=== PATIENT | female | born 1960 | race African-American/Black ===

== ENCOUNTER 2020-08-07 10:30 | Inpatient (IN) | payer MEDICARE ==
[~2020-08-07] VITALS: Ht 170.2 cm; Wt 169.0 kg
[2020-08-07] VITALS (7 sets, daily range): BP systolic 136–158; BP diastolic 59–91
[2020-08-07] MEDS ORDERED: MAGNESIUM/ALUMINUM HYDROXIDE/SIMETHICONE 30ML UDC PO STA (11:17)
[2020-08-07] MEDS ORDERED: KETOROLAC 30MG/ML VIAL IV STA (11:17)
[2020-08-07] MEDS ORDERED: ONDANSETRON HCL 4MG/2ML INJ IV STA (11:17)
[2020-08-07] MEDS ORDERED: SODIUM CHLORIDE 0.9% 1,000 ML IV ONE (11:30)
[2020-08-07 12:25] LABS: BASOPHILS % 0.6 % (0.0-2.0); EOSINOPHILS % 0.2 % (0.0-5.0); HEMATOCRIT. 44.7 % (36.0-48.0); HEMOGLOBIN. 14.7 g/dL (12.0-16.0); LYMPHOCYTES % 11.5 % (20.0-50.0); MEAN CORPUSCULAR HEMOGLOBIN 31.8 pg (28.0-32.0); MEAN CORPUSCULAR VOLUME 96.9 fL (81.0-99.0); MEAN PLATELET VOLUME 10.3 fl (7.4-10.4); MONOCYTES % 5.3 % (2.0-8.0); NEUTROPHILS % 82.4 % (40.0-76.0); PLATELET 120 x1000/uL (130-400); RED BLOOD CELL COUNT 4.62 mill/uL (4.2-5.4); RED CELL DISTRIBUTION WIDTH 13.9 % (11.6-14.6)
[2020-08-07 12:32] LABS: CHLORIDE 105 mEq/L (98-107)
[2020-08-07] MEDS ORDERED: ONDANSETRON HCL 4MG/2ML INJ IV ONE (13:45)
[2020-08-07] MEDS ORDERED: ENOXAPARIN 150MG/ML SYR SUBCUT ONE (13:45)
[2020-08-07] MEDS ORDERED: ASPIRIN 81MG TABLET PO ONE (14:45)
[2020-08-07] MEDS ORDERED: FUROSEMIDE 40MG/4ML VIAL IV ONE (14:45)
[2020-08-07] MEDS ORDERED: MORPHINE SULFATE 2 MG/ML CPJ (NOT FOR IM USE) IV ONE (15:30)
[2020-08-07] MEDS ORDERED: OMEG100036 MT (16:55)
[2020-08-07] MEDS ORDERED: MONT10TA26 MT (16:56)
[2020-08-07] MEDS ORDERED: GABA-290 MT (16:59)
[2020-08-07] MEDS ORDERED: AMLO5TAB88 MT (16:59)
[2020-08-07] MEDS ORDERED: FAMO20TA8 MT (16:59)
[2020-08-07] MEDS ORDERED: MELO-106 MT (16:59)
[2020-08-07] MEDS ORDERED: MULT-1146 MT (16:59)
[2020-08-07] MEDS ORDERED: CHOL100044 (16:59)
[2020-08-07] MEDS ORDERED: IPRATROPIUM/ALBUTEROL 0.5-3(2.5)MG/3ML NEB HHN PRN (17:45)
[2020-08-07] MEDS ORDERED: ONDANSETRON HCL 4MG/2ML INJ IV PRN (17:45)
[2020-08-07 17:49] LABS: CLARITY URINE CLEAR (CLEAR); COLOR URINE DARK YELLOW (YELLOW); KETONES URINE NEGATIVE (NEGATIVE); LEUKOCYTE ESTERASE URINE 1+ (NEGATIVE); NITRITE URINE NEGATIVE (NEGATIVE); OCCULT BLOOD URINE 2+ (NEGATIVE); PROTEIN URINE TRACE (NEGATIVE); SPECIFIC GRAVITY URINE 1.016 (1.005-1.030)
[2020-08-07 18:03] LABS: BG BASE EXCESS -0.5 mmol/L (-2.0-2.0); BG CARBOXYHEMOGLOBIN 1.5 % (0.5-1.5); BG DEOXYHEMOGLOBIN 6.9 % (0.0-5.0); BG HCO3 ACT 23.5 mmol/L (22.0-26.0); BG METHEMOGLOBIN 0.1 % (0.0-1.5); BG OXYHEMOGLOBIN 91.5 % (94.0-97.0); BG PCO2 36.4 mmHg (35.0-45.0); BG PH 7.427 (7.350-7.450); BG PO2 66.3 mmHg (75.0-100.0); BG SAMPLE SITE LEFT RADIAL; BG VENT MODE NASAL CANNULA
[2020-08-07] MEDS ORDERED: INFLUENZA VACCINE 05/PF 0.5 ML VIAL IM ONE (18:15)
[2020-08-07] MEDS ORDERED: PNEUMOCOCCAL 23-VAL P-SAC VAC 0.5 ML IM ONE (18:15)
[2020-08-07] MEDS: PANTOPRAZOLE SODIUM 40 MG/VIAL IV SCH (21:38)
[2020-08-07] MEDS: PIPERACILLIN/TAZOBACTAM 3.375 G in DEXT 5% WATER 100 ML IV SCH (21:38)
[2020-08-08] VITALS (17 sets, daily range): BP systolic 107–161; BP diastolic 59–103
[2020-08-08] MEDS: HYDROCODONE/ACETAMINOPHEN 5/325MG TABLET PO PRN ×4 (02:11→21:21)
[2020-08-08] MEDS: PIPERACILLIN/TAZOBACTAM 3.375 G in DEXT 5% WATER 100 ML IV SCH ×4 (04:07→21:10)
[2020-08-08 07:10] LABS: BASOPHILS % 0.4 % (0.0-2.0); EOSINOPHILS % 0.3 % (0.0-5.0); HEMATOCRIT. 40.2 % (36.0-48.0); HEMOGLOBIN. 13.3 g/dL (12.0-16.0); LYMPHOCYTES % 18.1 % (20.0-50.0); MEAN CORPUSCULAR HEMOGLOBIN 32.1 pg (28.0-32.0); MEAN CORPUSCULAR VOLUME 96.9 fL (81.0-99.0); MEAN PLATELET VOLUME 10.3 fl (7.4-10.4); MONOCYTES % 6.4 % (2.0-8.0); NEUTROPHILS % 74.8 % (40.0-76.0); PLATELET 159 x1000/uL (130-400); RED BLOOD CELL COUNT 4.15 mill/uL (4.2-5.4); RED CELL DISTRIBUTION WIDTH 13.8 % (11.6-14.6)
[2020-08-08 07:12] LABS: CHLORIDE 105 mEq/L (98-107)
[2020-08-08 07:27] LABS: LDL CHOLESTEROL 121 mg/dL (5-100)
[2020-08-08 07:29] LABS: HDL CHOLESTEROL 32 mg/dL (40-59); T4 FREE 1.24 ng/dL (0.76-1.46)
[2020-08-08] MEDS: PANTOPRAZOLE SODIUM 40 MG/VIAL IV SCH (08:26)
[2020-08-08] MEDS: ENOXAPARIN 40MG/0.4ML SYR SUBCUT SCH (21:11)
[2020-08-09] VITALS (16 sets, daily range): BP systolic 101–147; BP diastolic 45–99
[2020-08-09] MEDS: PIPERACILLIN/TAZOBACTAM 3.375 G in DEXT 5% WATER 100 ML IV SCH ×4 (03:34→21:40)
[2020-08-09 06:11] LABS: BASOPHILS % 0.3 % (0.0-2.0); EOSINOPHILS % 1.5 % (0.0-5.0); HEMATOCRIT. 38.3 % (36.0-48.0); HEMOGLOBIN. 12.7 g/dL (12.0-16.0); LYMPHOCYTES % 26.6 % (20.0-50.0); MEAN CORPUSCULAR HEMOGLOBIN 32.2 pg (28.0-32.0); MEAN CORPUSCULAR VOLUME 97.2 fL (81.0-99.0); MEAN PLATELET VOLUME 9.8 fl (7.4-10.4); NEUTROPHILS % 64.6 % (40.0-76.0); PLATELET 158 x1000/uL (130-400); RED BLOOD CELL COUNT 3.94 mill/uL (4.2-5.4); RED CELL DISTRIBUTION WIDTH 13.9 % (11.6-14.6)
[2020-08-09 06:26] LABS: CHLORIDE 104 mEq/L (98-107)
[2020-08-09] MEDS: ACETAMINOPHEN 325MG TABLET PO PRN (06:43)
[2020-08-09] MEDS: FAMOTIDINE 20MG/2ML VIAL IV SCH ×2 (08:44→21:39)
[2020-08-09] MEDS: ENOXAPARIN 40MG/0.4ML SYR SUBCUT SCH ×2 (08:45→21:39)
[2020-08-09] MEDS ORDERED: POTASSIUM CHLORIDE INJ 40 MEQ in DEXT 5% WATER 250 ML IV ONE (11:00)
[2020-08-09] MEDS ORDERED: LIDOCAINE HCL/PF 1% 2ML VIAL ONE (12:00)
[2020-08-09 12:55] LABS: BG BASE EXCESS 2.4 mmol/L (-2.0-2.0); BG CARBOXYHEMOGLOBIN 0.4 % (0.5-1.5); BG DEOXYHEMOGLOBIN 5.2 % (0.0-5.0); BG FRACTION INSPIRED OXYGEN 21; BG HCO3 ACT 26.1 mmol/L (22.0-26.0); BG OXYGEN SATURATION 94.8 % (92.0-98.5); BG OXYHEMOGLOBIN 94.4 % (94.0-97.0); BG PCO2 37.4 mmHg (35.0-45.0); BG PH 7.462 (7.350-7.450); BG PO2 68.3 mmHg (75.0-100.0); BG SAMPLE SITE LEFT RADIAL; BG TOTAL HEMOGLOBIN 13.9 g/dL (12.0-18.0); BG VENT MODE ROOM AIR
[2020-08-09] MEDS: HYDROCODONE/ACETAMINOPHEN 5/325MG TABLET PO PRN (16:28)
[2020-08-09] MEDS ORDERED: LORAZEPAM 2MG/ML CPJ IV PRN (16:30)
[2020-08-09] MEDS ORDERED: CLONIDINE 0.1MG TABLET PO PRN (16:30)
[2020-08-09] MEDS ORDERED: LACTULOSE 20G/30ML UDC PO PRN (16:30)
[2020-08-09] MEDS ORDERED: DIPHENHYDRAMINE 50MG/ML VIAL IV PRN (16:30)
[2020-08-09] MEDS: ASPIRIN 81MG TABLET PO SCH (18:21)
[2020-08-09] MEDS: CARVEDILOL 3.125 MG TABLET PO SCH (21:39)
[2020-08-10] VITALS (9 sets, daily range): BP systolic 125–157; BP diastolic 56–93
[2020-08-10] MEDS: PIPERACILLIN/TAZOBACTAM 3.375 G in DEXT 5% WATER 100 ML IV SCH ×2 (04:47→09:58)
[2020-08-10 06:48] LABS: BASOPHILS % 0.7 % (0.0-2.0); EOSINOPHILS % 1.7 % (0.0-5.0); HEMOGLOBIN. 12.4 g/dL (12.0-16.0); LYMPHOCYTES % 28.1 % (20.0-50.0); MEAN CORPUSCULAR HEMOGLOBIN 32.4 pg (28.0-32.0); MEAN CORPUSCULAR VOLUME 97.2 fL (81.0-99.0); MEAN PLATELET VOLUME 10.2 fl (7.4-10.4); MONOCYTES % 9.4 % (2.0-8.0); NEUTROPHILS % 60.1 % (40.0-76.0); PLATELET 177 x1000/uL (130-400); RED BLOOD CELL COUNT 3.81 mill/uL (4.2-5.4); RED CELL DISTRIBUTION WIDTH 13.9 % (11.6-14.6)
[2020-08-10 07:17] LABS: CHLORIDE 104 mEq/L (98-107)
[2020-08-10] MEDS: ASPIRIN 81MG TABLET PO SCH (08:07)
[2020-08-10] MEDS: ENOXAPARIN 40MG/0.4ML SYR SUBCUT SCH ×2 (08:07→21:05)
[2020-08-10] MEDS: FAMOTIDINE 20MG/2ML VIAL IV SCH (08:07)
[2020-08-10] MEDS: CARVEDILOL 3.125 MG TABLET PO SCH ×2 (08:07→21:05)
[2020-08-10] MEDS: ACETAMINOPHEN 325MG TABLET PO PRN (08:08)
[2020-08-10] MEDS: LEVOFLOXACIN 500MG PREMIX 100 ML IV SCH (13:06)
[2020-08-10] MEDS: HYDROCODONE/ACETAMINOPHEN 5/325MG TABLET PO PRN (13:07)
[2020-08-10] MEDS: METRONIDAZOLE 500MG TABLET PO SCH ×2 (14:13→21:04)
[2020-08-10] MEDS: METOCLOPRAMIDE HCL 10MG/2ML VIAL IV SCH (17:35)
[2020-08-10] MEDS: OMEPRAZOLE 20MG CAPSULE EXTENDED RELEASE PO SCH (21:05)
[2020-08-11] VITALS: BP 118/80
[2020-08-11 04:00] VITALS: BP 130/60
[2020-08-11] MEDS: METOCLOPRAMIDE HCL 10MG/2ML VIAL IV SCH ×4 (05:55→17:38)
[2020-08-11] MEDS: OMEPRAZOLE 20MG CAPSULE EXTENDED RELEASE PO SCH ×2 (05:55→21:17)
[2020-08-11] MEDS: METRONIDAZOLE 500MG TABLET PO SCH ×3 (05:55→21:17)
[2020-08-11 08:00] VITALS: BP 126/72
[2020-08-11 09:44] LABS: BASOPHILS % 0.7 % (0.0-2.0); HEMATOCRIT. 30.9 % (36.0-48.0); HEMOGLOBIN. 10.2 g/dL (12.0-16.0); LYMPHOCYTES % 22.2 % (20.0-50.0); MEAN CORPUSCULAR HEMOGLOBIN 32.3 pg (28.0-32.0); MEAN CORPUSCULAR VOLUME 97.6 fL (81.0-99.0); MEAN PLATELET VOLUME 9.8 fl (7.4-10.4); MONOCYTES % 8.1 % (2.0-8.0); PLATELET 142 x1000/uL (130-400); RED BLOOD CELL COUNT 3.16 mill/uL (4.2-5.4); RED CELL DISTRIBUTION WIDTH 13.6 % (11.6-14.6)
[2020-08-11] MEDS: ASPIRIN 81MG TABLET PO SCH (10:01)
[2020-08-11] MEDS: CARVEDILOL 3.125 MG TABLET PO SCH ×2 (10:02→21:18)
[2020-08-11] MEDS: ENOXAPARIN 40MG/0.4ML SYR SUBCUT SCH ×2 (10:02→21:17)
[2020-08-11 11:55] LABS: CHLORIDE 105 mEq/L (98-107)
[2020-08-11 12:00] VITALS: BP 133/84
[2020-08-11 12:04] LABS: CREATINE KINASE 56 IU/L (26-192)
[2020-08-11] MEDS ORDERED: POTASSIUM CHLORIDE 20MEQ TABLET SR PO NR (12:15)
[2020-08-11] MEDS: LEVOFLOXACIN 500MG PREMIX 100 ML IV SCH (14:59)
[2020-08-11 15:22] LABS: HEPATITIS B SURFACE ANTIGEN NEGATIVE
[2020-08-11 15:52] LABS: HEPATITIS A AB IGM NEGATIVE (NEGATIVE)
[2020-08-11 16:00] VITALS: BP 134/78
[2020-08-11 20:00] VITALS: BP 143/65
[2020-08-12] VITALS: BP 133/71
[2020-08-12] MEDS: METOCLOPRAMIDE HCL 10MG/2ML VIAL IV SCH ×3 (00:01→13:02)
[2020-08-12 04:00] VITALS: BP 125/84
[2020-08-12] MEDS: METRONIDAZOLE 500MG TABLET PO SCH ×2 (06:33→16:29)
[2020-08-12] MEDS: OMEPRAZOLE 20MG CAPSULE EXTENDED RELEASE PO SCH (06:33)
[2020-08-12 08:15] VITALS: BP 133/72
[2020-08-12 08:19] LABS: BASOPHILS % 0.9 % (0.0-2.0); EOSINOPHILS % 0.9 % (0.0-5.0); HEMATOCRIT. 36.6 % (36.0-48.0); HEMOGLOBIN. 12.1 g/dL (12.0-16.0); LYMPHOCYTES % 24.5 % (20.0-50.0); MEAN CORPUSCULAR HEMOGLOBIN 32.5 pg (28.0-32.0); MEAN CORPUSCULAR VOLUME 98.1 fL (81.0-99.0); MEAN PLATELET VOLUME 9.9 fl (7.4-10.4); NEUTROPHILS % 63.7 % (40.0-76.0); PLATELET 182 x1000/uL (130-400); RED BLOOD CELL COUNT 3.73 mill/uL (4.2-5.4)
[2020-08-12 08:37] LABS: CHLORIDE 106 mEq/L (98-107)
[2020-08-12] MEDS: ENOXAPARIN 40MG/0.4ML SYR SUBCUT SCH (09:00)
[2020-08-12] MEDS: ASPIRIN 81MG TABLET PO SCH (09:01)
[2020-08-12] MEDS: CARVEDILOL 3.125 MG TABLET PO SCH (09:01)
[2020-08-12 11:06] VITALS: BP 133/72
[2020-08-12 12:00] VITALS: BP 139/58
[2020-08-12] MEDS: LEVOFLOXACIN 500MG PREMIX 100 ML IV SCH (13:02)
[2020-08-12 16:00] VITALS: BP 158/81
[2020-08-13] MEDS ORDERED: LEVOFLOXACIN 500MG TABLET PO SCH (11:00)
[2020-08-15 04:10] LABS: OVA & PARASITE EXAM Final report (.)
== END 2020-08-12 18:25 | disposition home or self-care (01) | DRG 871 ==
LOC: ER 10:58 → 3WST 14:21 → ENRESERV 15:16 → 7EST 08-10 16:06 → 8WST 08-11 05:41
PROVIDERS: ADMIT Internal Medicine; ATTEND Internal Medicine
PROC: 02HV33Z Insertion of Infusion Device into Superior Vena Cava, Percutaneous Approach (ICD-10-PCS; principal; 2020-08-09)
PROC: B548ZZA Ultrasonography of Superior Vena Cava, Guidance (ICD-10-PCS; 2020-08-09)
DX: A41.9 Sepsis, unspecified organism (principal); I21.4 Non-ST elevation (NSTEMI) myocardial infarction; I50.33 Acute on chronic diastolic (congestive) heart failure; Z68.43 Body mass index [BMI] 50.0-59.9, adult; N39.0 Urinary tract infection, site not specified; K80.00 Calculus of gallbladder with acute cholecystitis without obstruction; E66.01 Morbid (severe) obesity due to excess calories; E78.5 Hyperlipidemia, unspecified; I11.0 Hypertensive heart disease with heart failure; N19 Unspecified kidney failure; K76.0 Fatty (change of) liver, not elsewhere classified; E87.6 Hypokalemia; E88.09 Other disorders of plasma-protein metabolism, not elsewhere classified; K52.9 Noninfective gastroenteritis and colitis, unspecified; Z20.828 Contact with and (suspected) exposure to other viral communicable diseases; R74.01 Elevation of levels of liver transaminase levels; R73.9 Hyperglycemia, unspecified; Z79.899 Other long term (current) drug therapy
CPT/HCPCS: 36415; 36600; 71045; 74176; 76700; 76937; 78227; 80048; 80053; 80061; 80076; 81003; 82248; 82375; 82550; 82805; 83880; 84439; 84443; 84484; 85025; 86705; 86709; 86803; 87015; 87045; 87177; 87209; 87340; 87426; 87427; 87449; 87804; 89055; 90686; 90732; 93005; 93306; 97110; 97162; 97166; 99291; A9537; C1725; C9113; J1650; J1885; J1940; J1956; J2270; J2405; J2543; J2765; J3480; J3490; J7030; J7060; U0003